=== PATIENT | male | born 1945 | race Caucasian/White ===

== ENCOUNTER 2018-11-11 05:45 | Day surgery (SDC) | payer OTHER ==
[~2018-11-11 05:45] MED LIST: ASA325 MG PO; LISINOPRIL5 MG PO; METFORMIN HCL500 MG PO; TAMS0.4C PO; ZOCOR20 MG PO
[2018-11-11] MEDS ORDERED: PERCOCET 5-3251 EACH PO (08:30)
[2018-11-11] MEDS ORDERED: RECTICARE30 GM TOP (08:31)
== END 2018-11-11 16:50 | disposition home or self-care (01) ==
LOC: CIR.AMB 05:45
DX: K64.8 Other hemorrhoids (principal); K64.4 Residual hemorrhoidal skin tags; K64.3 Fourth degree hemorrhoids